=== PATIENT | female | born 1995 | race African-American/Black ===

== ENCOUNTER 2017-07-23 23:45 | Emergency (ER) | payer MEDICAID ==
[~2017-07-23] VITALS: Ht 157.5 cm; Wt 103.0 kg
[~2017-07-23 23:45] MED LIST: CEPH-571 PO; LEVA15HF4 INH
[2017-07-24 00:34] LABS: BASOPHILS # (AUTO) 0.1 X10'3 (0-0.2); BASOPHILS % (AUTO) 1.1 % (0-1); EOSINOPHILS # (AUTO) 0.3 X10'3 (0-0.9); EOSINOPHILS % (AUTO) 2.5 % (0-6); HEMATOCRIT 36.6 % (35.0-45.0); HEMOGLOBIN 12.7 g/dl (12.0-16.0); LYMPHOCYTES # (AUTO) 3.9 X10'3 (1.1-4.8); MEAN CORPUSCULAR HEMOGLOBIN 30.6 PG (27.0-31.0); MEAN CORPUSCULAR HGB CONC 34.7 % (33.0-36.5); MEAN CORPUSCULAR VOLUME 88.2 FL (78-98); MEAN PLATELET VOLUME 8.1 FL (7.4-10.4); MONOCYTES # (AUTO) 0.8 X10'3 (0-0.9); MONOCYTES % (AUTO) 7.1 % (2-12); NEUTROPHILS # (AUTO) 6.3 X10'3 (1.8-7.7); NEUTROPHILS % (AUTO) 55.3 % (42-75); PLATELET COUNT 309 X10'3 (140-440); RED BLOOD COUNT 4.15 X10'6 (4.20-5.60); RED CELL DISTRIBUTION WIDTH 13.3 % (11.5-14.5); WHITE BLOOD COUNT 11.4 X10'3 (4.5-11.0)
[2017-07-24] MEDS ORDERED: mag hydrox/Alum hydrox/simeth 30ml oral suspension PO ONE (00:35)
[2017-07-24] MEDS ORDERED: LIDOcaine Viscous 15ml cup PO ONE (00:35)
[2017-07-24] MEDS ORDERED: sucralfate 1gm/10ml UD suspension PO STA (00:35)
[2017-07-24 00:38] LABS: URINE HCG NEGATIVE (NEG)
[2017-07-24 00:44] LABS: PROTHROMBIN TIME 10.8 SECONDS (9.0-12.0)
[2017-07-24 00:49] LABS: ALANINE AMINOTRANSFERASE 29 U/L (12-78); ALBUMIN 3.8 G/DL (3.4-5.0); ALBUMIN/GLOBULIN RATIO 1.1 (1.1-1.5); ALKALINE PHOSPHATASE 61 IU/L (46-116); ANION GAP 9 (8-16); ASPARTATE AMINO TRANSFERASE 17 U/L (10-37); BILIRUBIN,TOTAL 0.1 MG/DL (0.1-1.0); BLOOD UREA NITROGEN 15 MG/DL (7-18); BUN/CREATININE RATIO 19.2 (6.6-38.0); CHLORIDE 103 MMOL/L (99-107); CREATININE 0.78 MG/DL (0.40-0.90); GLUCOSE 102 MG/DL (70-104); LIPASE 98 U/L (73-393); SODIUM 140 MMOL/L (135-145); TOTAL CARBON DIOXIDE 27.8 MMOL/L (24-32); TOTAL PROTEIN 7.2 G/DL (6.4-8.2); eGFR > 90 ML/MIN
[2017-07-24 00:59] LABS: CLARITY,URINE CLOUDY (Clear); COLOR,URINE YELLOW (Yellow); GLUCOSE, URINE NEGATIVE (Neg); KETONES,URINE NEGATIVE (Neg); LEUKOCYTE ESTERASE ,URINE NEGATIVE (Neg); NITRITES, URINE NEGATIVE (Neg); OCCULT BLOOD,URINE NEGATIVE (Neg); PH,URINE 7.5 (4.8-8.0); PROTEIN,URINE NEGATIVE (Neg); UROBILINOGEN,URINE 0.2 E.U/dL (0.2-1.0)
[2017-07-24 01:01] LABS: UA COLLECTION TYPE CLN CATCH MIDSTREAM
[2017-07-24 01:24] LABS: AMORPHOUS PHOSPHATES 3+; BACTERIA,URINE NONE SEEN /HPF (Neg); MUCUS STRANDS NONE SEEN /LPF (Neg); RBC,URINE NONE SEEN /HPF (0-2); SQUAMOUS EPITHELIAL CELL,UR MANY /LPF (FEW); WBC,URINE 0-4 /HPF (0-4)
[2017-07-24 01:47] VITALS: BP 110/55
== END 2017-07-24 01:48 | disposition home or self-care (01) ==
LOC: ER 23:46
DX: R10.10 Upper abdominal pain, unspecified (principal); R11.2 Nausea with vomiting, unspecified; R19.7 Diarrhea, unspecified; J45.909 Unspecified asthma, uncomplicated; Z79.899 Other long term (current) drug therapy
CPT/HCPCS: 36415; 80053; 81001; 81025; 83690; 85025; 85610; 99284

== ENCOUNTER 2019-11-07 20:46 | Emergency (ER) | payer MEDICAID ==
[~2019-11-07] VITALS: Ht 157.5 cm; Wt 116.7 kg
[~2019-11-07 20:46] MED LIST changes: +METO-292 PO
[2019-11-07 20:51] VITALS: BP 143/87
[2019-11-07] MEDS ORDERED: LIDOcaine Viscous 15ml cup MM STA (21:44)
[2019-11-07] MEDS ORDERED: IBUP-1985 PO (21:48)
[2019-11-07] MEDS ORDERED: LIDO20SO16 PO (21:48)
[2019-11-07] MEDS ORDERED: PENI500T2 PO (21:48)
== END 2019-11-07 21:55 | disposition home or self-care (01) ==
LOC: ER 20:47
DX: K08.89 Other specified disorders of teeth and supporting structures (principal); J45.909 Unspecified asthma, uncomplicated; Z98.51 Tubal ligation status; Z98.890 Other specified postprocedural states; Z79.2 Long term (current) use of antibiotics; Z79.899 Other long term (current) drug therapy
CPT/HCPCS: 99283

== ENCOUNTER 2020-02-25 21:40 | Emergency (ER) | payer MEDICAID ==
[~2020-02-25] VITALS: Ht 157.5 cm; Wt 116.0 kg
[~2020-02-25 21:40] MED LIST changes: +IBUP-1985 PO; +LIDO20SO16 PO
[2020-02-25 23:41] LABS: CLARITY,URINE CLOUDY (Clear); COLOR,URINE YELLOW (Yellow); GLUCOSE, URINE NEGATIVE (Neg); KETONES,URINE NEGATIVE (Neg); LEUKOCYTE ESTERASE ,URINE MODERATE (Neg); NITRITES, URINE NEGATIVE (Neg); OCCULT BLOOD,URINE NEGATIVE (Neg); PROTEIN,URINE NEGATIVE (Neg); UROBILINOGEN,URINE 0.2 E.U/dL (0.2-1.0)
[2020-02-25 23:45] LABS: URINE HCG NEGATIVE (NEG)
[2020-02-25 23:50] LABS: BACTERIA,URINE 1+ /HPF (Neg); RBC,URINE 0-2 /HPF (0-2); SQUAMOUS EPITHELIAL CELL,UR MANY /LPF (FEW); UA COLLECTION TYPE CLN CATCH MIDSTREAM; WBC,URINE 0-4 /HPF (0-4)
[2020-02-25 23:56] LABS: URINE AMPHETAMINE SCREEN NEGATIVE (Neg); URINE BARBITUATE SCREEN NEGATIVE (Neg); URINE BENZODIAZEPINES SCREEN NEGATIVE (Neg); URINE CANNABINOID SCREEN POSITIVE (Neg); URINE COCAINE SCREEN NEGATIVE (Neg); URINE METHADONE SCREEN NEGATIVE (Neg); URINE OPIATE SCREEN NEGATIVE (Neg); URINE PHENCYCLIDINE SCREEN NEGATIVE (Neg)
[2020-02-26 01:56] VITALS: BP 116/78
== END 2020-02-26 01:58 | disposition home or self-care (01) ==
LOC: ER 21:40
DX: F12.10 Cannabis abuse, uncomplicated (principal); R51.9 Headache, unspecified; R41.0 Disorientation, unspecified; J45.909 Unspecified asthma, uncomplicated; Z98.51 Tubal ligation status; Z98.890 Other specified postprocedural states; Z79.2 Long term (current) use of antibiotics; Z79.899 Other long term (current) drug therapy
CPT/HCPCS: 70450; 80305; 81001; 81025; 99284

== ENCOUNTER 2021-03-21 05:49 | Emergency (ER) | payer MEDICAID ==
[~2021-03-21] VITALS: Ht 157.5 cm; Wt 118.2 kg
[2021-03-21 06:03] VITALS: BP 131/81
== END 2021-03-21 09:40 | disposition left against medical advice (07) ==
LOC: ER 05:50
DX: J02.9 Acute pharyngitis, unspecified (principal); Z53.21 Procedure and treatment not carried out due to patient leaving prior to being seen by health care provider

== ENCOUNTER 2022-03-29 10:08 | Emergency (ER) | payer MEDICAID ==
[~2022-03-29] VITALS: Ht 157.5 cm; Wt 127.3 kg
[2022-03-29 10:19] VITALS: BP 127/81
[2022-03-29] MEDS ORDERED: ketorolac trometh inj. 60 MG/2 ML VIAL IM ONE (12:00)
[2022-03-29] MEDS ORDERED: orphenadrine citrate 60mg/2ml inj. IM ONE (12:00)
[2022-03-29] MEDS ORDERED: ORPH100T2 PO (13:38)
[2022-03-29] MEDS ORDERED: HYDR-3965 PO (13:38)
== END 2022-03-29 13:49 | disposition home or self-care (01) ==
LOC: ER 10:08
DX: M54.59 Other low back pain (principal); J45.909 Unspecified asthma, uncomplicated; Z98.890 Other specified postprocedural states; Z79.1 Long term (current) use of non-steroidal anti-inflammatories (NSAID); Z79.2 Long term (current) use of antibiotics
CPT/HCPCS: 96372; 99284; J1885; J2360